=== PATIENT | male | born 1980 | race African-American/Black ===

== ENCOUNTER 2020-10-06 21:12 | Emergency (ER) | payer SELFPAY ==
[~2020-10-06] VITALS: Ht 170.2 cm; Wt 77.0 kg
[2020-10-06] MEDS ORDERED: KETOROLAC 60MG/2ML VIAL IM ONE (22:15)
[2020-10-06] MEDS ORDERED: IBUP-2029 MT (22:26)
[2020-10-06 22:40] VITALS: BP 132/68
== END 2020-10-06 22:50 | disposition home or self-care (01) ==
LOC: ER 21:12
DX: M54.2 Cervicalgia (principal); M54.5 Low back pain; J45.909 Unspecified asthma, uncomplicated
CPT/HCPCS: 96372; 99283; J1885

== ENCOUNTER 2023-06-12 22:27 | Emergency (ER) | payer MEDICAID ==
[~2023-06-12] VITALS: Ht 170.2 cm; Wt 72.6 kg
[~2023-06-12 22:27] MED LIST: IBUP-2029 MT
[2023-06-12 23:05] VITALS: BP 118/84; PULSE 70; RESP 16; TEMP 98.6; O2SAT 100
[2023-06-12] MEDS ORDERED: LIDOCAINE HCL/PF 1% 10 MG/ML 5ML VIAL INFIL ONE (23:45)
[2023-06-12] MEDS ORDERED: BACITRACIN ZINC OINT UDPKT TOP ONE (23:45)
[2023-06-13] MEDS ORDERED: CEPH500T MT (00:05)
[2023-06-13] MEDS ORDERED: SULF1TAB48 MT (00:05)
== END 2023-06-13 00:48 | disposition home or self-care (01) ==
LOC: ER 22:27
DX: L53.8 Other specified erythematous conditions (principal); J45.909 Unspecified asthma, uncomplicated
CPT/HCPCS: 99283; 10060; J3490

== ENCOUNTER 2023-07-24 11:12 | Emergency (ER) | payer MEDICAID, OTHER ==
[~2023-07-24] VITALS: Ht 170.2 cm; Wt 72.7 kg
[~2023-07-24 11:12] MED LIST changes: +CEPH500T MT; +SULF1TAB48 MT
[2023-07-24 11:24] VITALS: BP 119/80; PULSE 95; RESP 16; TEMP 98.3; O2SAT 98
[2023-07-24] MEDS: TETANUS, DIPHTHERIA, PERTUSSIS VAC/PF 0.5ML (>10YR OLD) IM ONE (11:45)
[2023-07-24] MEDS: BACITRACIN ZINC OINT UDPKT TOP ONE (11:45)
[2023-07-24] MEDS: LIDOCAINE HCL/PF 1% 10 MG/ML 5ML VIAL INFIL ONE (11:45)
[2023-07-24] MEDS ORDERED: SULF1TAB48 MT (15:04)
[2023-07-24] MEDS ORDERED: AMOX1TAB16 MT (15:04)
[2023-07-24] MEDS ORDERED: BO1 TP (15:18)
== END 2023-07-24 16:30 | disposition home or self-care (01) ==
LOC: ER 11:12
DX: L02.01 Cutaneous abscess of face (principal); K00.7 Teething syndrome; J45.909 Unspecified asthma, uncomplicated; R51.9 Headache, unspecified
CPT/HCPCS: 70486; 99284; J3490; Z7610 ×3

== ENCOUNTER 2023-11-06 17:43 | Emergency (ER) | payer SELFPAY ==
[~2023-11-06] VITALS: Ht 170.2 cm; Wt 71.7 kg
[~2023-11-06 17:43] MED LIST changes: +AMOX1TAB16 MT; +BO1 TP
[2023-11-06 18:19] VITALS: BP 123/74; PULSE 70; RESP 16; TEMP 98.4; O2SAT 100
== END 2023-11-06 22:05 | disposition left against medical advice (07) ==
LOC: ER 17:43
DX: M79.672 Pain in left foot (principal); Z53.21 Procedure and treatment not carried out due to patient leaving prior to being seen by health care provider